=== PATIENT | female | born 1965 ===

== ENCOUNTER 2018-03-13 19:41 | Observation (INO) | payer MEDICAID, OTHER ==
[2018-03-13 19:42] VITALS: BMI 34.8
[2018-03-13] MEDS ORDERED: Sodium Chloride 0.9% 1,000 ML IV STA (20:42)
[2018-03-13 21:43] LABS: BASO % 0.3 % (0.0-2.0); EOS % 0.2 % (0.0-4.0); HEMOGLOBIN 12.9 g/dL (12.0-16.0); LYMPH # 1.3 K/uL (1.0-4.3); LYMPH % 9.7 % (20.0-40.0); MEAN CORPUSCULAR HEMOGLOBIN 29.7 pg (27.0-31.0); MEAN PLATELET VOLUME 9.3 fl (7.2-11.7); MONO % 7.2 % (0.0-10.0); NEUT # 11.1 K/uL (1.8-7.0); NEUT % 82.6 % (50.0-75.0); PLATELET COUNT 216 K/uL (130-400); RBC 4.35 Mil/uL (3.80-5.20); RED CELL DISTRIBUTION WIDTH 13.2 % (11.5-14.5); WHITE BLOOD COUNT 13.4 K/uL (4.8-10.8)
[2018-03-13 21:51] LABS: SQUAMOUS EPITHIAL 4 /hpf (0-5); URINE BACTERIA RARE (<OCC); URINE BILIRUBIN NEGATIVE (NEGATIVE); URINE BLOOD SMALL (NEGATIVE); URINE CLARITY CLOUDY (Clear); URINE COLOR AMBER (YELLOW); URINE GLUCOSE (UA) NEG (Normal); URINE LEUKOCYTE ESTERASE TRACE Leu/uL (Negative); URINE PROTEIN 100 mg/dL (NEGATIVE); URINE UROBILINOGEN 0.2-1.0 mg/dL (0.2-1.0)
[2018-03-13 21:54] LABS: ALB/GLOB RATIO 1.1 (1.0-2.1); ALBUMIN 4.2 g/dL (3.5-5.0); ALT/SGPT 21 U/L (9-52); AST/SGOT 25 U/L (14-36); BLOOD UREA NITROGEN 12 mg/dl (7-17); GFR NON-AFRICAN AMERICAN > 60; LIPASE 61 U/L (23-300)
[2018-03-13 22:57] LABS: ANISOCYTOSIS SLIGHT; BANDS 3 % (0-2); HYPOCHROMIC SLIGHT; LYMPHOCYTE 12 % (20-50); MONOCYTE 10 % (0-10); NEUTROPHIL 75 % (42-75); PLATELET ESTIMATE NORMAL (NORMAL); TOTAL CELLS COUNTED 100
[2018-03-14] MEDS ORDERED: Piperacillin/Tazobact 3.375 GM in Sodium Chloride 0.9% 100 ML IV ONE (04:27)
--- NOTE | 2018-03-14 04:34 | ED PDOC ---
HPI: Abdomen Time Seen by Provider: 03/14/18 00:15 Chief Complaint (Nursing): Abdominal Pain Chief Complaint (Provider): Right sided abdominal pain Past Medical History Reviewed: Historical Data, Nursing Documentation, Vital Signs Vital Signs: Last Vital Signs Temp 98.3 F 03/13/18 20:23 Pulse 80 03/13/18 20:23 Resp 16 03/13/18 20:23 BP 101/68 03/13/18 20:23 Pulse Ox 98 03/13/18 20:23 - Medical History PMH: Migraine, Chronic Kidney Disease - Surgical History Surgical History: (x 1) - Family History Family History: States: Diabetes, Hypertension - Home Medications Home Medications: Ambulatory Orders Medication Instructions Recorded Meclizine [Meclizine*] 25 mg PO Q8H PRN #15 tab 10/28/14 Ibuprofen [Motrin Tab] 600 mg PO Q6 PRN #15 tab 04/05/16 - Allergies Allergies/Adverse Reactions: Allergies Allergy/AdvReac Type Severity Reaction Status Date / Time No Known Allergies Allergy Verified 03/13/18 20:23 - Laboratory Results Result Diagrams: 03/13/18 21:38 03/13/18 21:38 - ECG O2 Sat by Pulse Oximetry: 98 Disposition - Disposition
--- NOTE | 2018-03-14 05:05 | CP.PCM.CON ---
History of Present Illness - History of Present Illness History of Present Illness: General surgery consult note for Dr. Stu Almanza, PGY-2 Pt S & E at bedside at 0430. Latvian interpretors Grace #[id number] and Veto antonio 52F w/PMH sig for nephrolithiasis consulted for R mid abdominal pain x 1 day. Pt reports sudden onset of R mid abdominal pain the AM prior to evaluation, pain is constant, severe, radiates to left side. Admits to diarrhea x 2 (soft unformed). Reports having similarly located pain 1.5 yrs prior with hospitalization and diagnosis of nephrolithiasis. Denies N & V, F & C, constipation, SOB, CP, BAIG, sore throat, dysuria, hematuria, hematochezia, melena, other complaints. Last meal was breakfast on day prior to evaluation, last PO intake was water at 6pm. In ED - CT abdomen positive for acute appendicitis, 1.5 cm, uncomplicated. Afebrile, leukocytosis of 13.4. PMH: Nephrolithiasis, migraines, Benign positional vertigo PSH: x 1 All: NKDA SH: Admits to drinking up to 10 beers weekly, denies tobacco or illicit drug use FH: Mother had cancer in her bowel PMD: Denies Review of Systems - Review of Systems All systems: reviewed and no additional remarkable complaints except - Constitutional Constitutional: Headache (chronic migraines). absent: Chills, Fever - EENT Nose/Mouth/Throat: absent: Sore Throat - Cardiovascular Cardiovascular: absent: Chest Pain - Gastrointestinal Gastrointestinal: Abdominal Pain, Change in Bowel Habits, Diarrhea, Loose Stools. absent: Constipation, Hematemesis, Hematochezia, Melena, Nausea, Vomiting - Genitourinary Genitourinary: absent: Change in Urinary Stream, Dysuria, Flank Pain, Hematuria, Pyuria - Musculoskeletal Musculoskeletal: absent: Back Pain - Integumentary Integumentary: absent: Rash - Neurological Neurological: Dizziness (chronic, hx vertigo) - Psychiatric Psychiatric: Change in Appetite (decreased) - Endocrine Endocrine: absent: Fatigue Past Patient History - Past Social History Smoking Status: Never Smoked - CARDIAC Hx Cardiac Disorders: No - PULMONARY Hx Respiratory Disorders: No - NEUROLOGICAL Hx Migraine: Yes - HEENT Hx HEENT Problems: No - RENAL Hx Chronic Kidney Disease: Yes - ENDOCRINE/METABOLIC Hx Endocrine Disorders: No - HEMATOLOGICAL/ONCOLOGICAL Hx Blood Disorders: No - INTEGUMENTARY Hx Dermatological Problems: No - MUSCULOSKELETAL/RHEUMATOLOGICAL Hx Musculoskeletal Disorders: No - GASTROINTESTINAL Hx Gastrointestinal Disorders: No - GENITOURINARY/GYNECOLOGICAL Hx Genitourinary Disorders: No - PSYCHIATRIC Hx Psychophysiologic Disorder: No Hx Substance Use: No - SURGICAL HISTORY Hx Surgeries: Yes Hx Section: Yes - ANESTHESIA Hx Anesthesia: Yes Hx Anesthesia Reactions: No Meds Allergies/Adverse Reactions: Allergies Allergy/AdvReac Type Severity Reaction Status Date / Time No Known Allergies Allergy Verified 03/13/18 20:23 - Medications Medications: Current Medications Piperacillin Sod/Tazobactam (Sod 3.375 gm/ Sodium Chloride) 100 mls @ 100 mls/hr IV ONCE ONE; Protocol Stop: 03/14/18 05:26 Physical Exam - Constitutional Appears: Non-toxic, No Acute Distress - Head Exam Head Exam: ATRAUMATIC, NORMAL INSPECTION, NORMOCEPHALIC - Eye Exam Eye Exam: EOMI, Normal appearance - ENT Exam ENT Exam: Mucous Membranes Moist, Normal Exam - Neck Exam Neck exam: Positive for: Full Rom, Normal Inspection - Respiratory Exam Respiratory Exam: Clear to Auscultation Bilateral, NORMAL BREATHING PATTERN. absent: Rales, Rhonchi, Wheezes, Respiratory Distress - Cardiovascular Exam Cardiovascular Exam: REGULAR RHYTHM, +S1, +S2 - GI/Abdominal Exam GI & Abdominal Exam: Normal Bowel Sounds, Soft, Tenderness (R mid abdomen). absent: Distended (obese), Firm, Guarding, Hernia, Mass, Rigid - Extremities Exam Extremities exam: Positive for: normal inspection. Negative for: tenderness - Neurological Exam Neurological exam: Alert, CN II-XII Intact, Oriented x3 - Psychiatric Exam Psychiatric exam: Normal Affect, Normal Mood - Skin Skin Exam: Dry, Intact, Normal Color, Warm Results - Vital Signs Recent Vital Signs: Last Vital Signs Temp 98.3 F 03/13/18 20:23 Pulse 80 03/13/18 20:23 Resp 16 03/13/18 20:23 BP 101/68 03/13/18 20:23 Pulse Ox 98 03/14/18 04:54 - Labs Result Diagrams: 03/13/18 21:38 03/13/18 21:38 Labs: Laboratory Results - last 24 hr 03/13/18 03/13/18 03/13/18 21:38 21:38 21:58 WBC 13.4 H D RBC 4.35 Hgb 12.9 Hct 39.2 MCV 90.0 MCH 29.7 MCHC 33.0 RDW 13.2 Plt Count 216 MPV 9.3 Neut % (Auto) 82.6 H Lymph % (Auto) 9.7 L Sullivan % (Auto) 7.2 Eos % (Auto) 0.2 Baso % (Auto) 0.3 Neut # (Auto) 11.1 H Lymph # (Auto) 1.3 Sullivan # (Auto) 1.0 H Eos # (Auto) 0.0 Baso # (Auto) 0.0 Neutrophils % (Manual) 75 Band Neutrophils % 3 H Lymphocytes % (Manual) 12 L Monocytes % (Manual) 10 Platelet Estimate Normal Hypochromasia (manual) Slight Anisocytosis (manual) Slight Sodium 139 Potassium 4.2 Chloride 105 Carbon Dioxide 26 Anion Gap 12 BUN 12 Creatinine 0.5 L Est GFR ( Amer) > 60 Est GFR (Non-Af Amer) > 60 Random Glucose 114 H Calcium 9.0 Total Bilirubin 0.6 AST 25 ALT 21 Alkaline Phosphatase 63 Total Protein 7.9 Albumin 4.2 Globulin 3.7 Albumin/Globulin Ratio 1.1 Lipase 61 Urine Color Torie Urine Clarity Cloudy Urine pH 6.0 Ur Specific [place] 1.025 Urine Protein 100 Urine Glucose (UA) Neg Urine Ketones Trace Urine Blood Small Urine Nitrate Negative Urine Bilirubin Negative Urine Urobilinogen 0.2-1.0 Ur Leukocyte Esterase Trace Urine RBC (Auto) 33 H Urine Microscopic WBC 6 H Ur Squamous Epith Cells 4 Urine Bacteria Rare Hyaline Casts 3-5 H Assessment & Plan - Assessment and Plan (Free Text) Assessment: 52F w/acute appendicitis Plan: NPO IVF Abx Pain control FU coags FU EKG FU CXR Plan for OR today Consent in chart Further mgmt as per primary team DW Dr. Chris Almanza, PGY-2 - Date & Time Date: 03/14/18 Time: 05:08
[2018-03-14] MEDS ORDERED: Lactated Ringer's 1,000 ML IV SCH ×2 (05:15→11:30)
[2018-03-14] MEDS ORDERED: Piperacillin/Tazobact 3.375 gm Inj IVPB ONE (05:20)
--- NOTE | 2018-03-14 05:31 | CP.PCM.HP ---
Addendum entered and electronically signed by Leigh Ann Davey MD 03/14/18 18:02: S: Patient seen and examined s/p Appendectomy, POD#0. Patient is stable, urinated, pain is well controlled, tolerating PO intake. O: VS reviewed A/P: 52 y/o F, POD#0 s/p Appendectomy - C/w current management --- Leigh Ann Davey, PGY-II Original Note: History of Present Illness - History of Present Illness History of Present Illness: PMD: None Chief Complaint: Abdominal pain The patient was seen and examined in the ED with no family present HPI: The hx was obtained from the patient and after review of the medical records. This is a 52 years old female with hx of Vertigo and Nephrolithiasis who comes with 3 hours of sharp, continuous right lower quadrant abdominal pain, radiating laterally to the right and increases with movement. No fever, vomits, diarrhea nor urinary symptoms. She referred having this type of pain one year ago. PMH: Vertigo; Nephrolithiasis PSH: Cesarian section x1 SH: No illegal drug use; never smoked cigarettes; Occasional alcohol FH: Significant for DM and HTN Mother with cancer Allergies: NKDA Medication: Reviewed Present on Admission - Present on Admission Any Indicators Present on Admission: No History of DVT/PE: No History of Uncontrolled Diabetes: No Urinary Catheter: No Decubitus Ulcer Present: No Review of Systems - Constitutional Constitutional: absent: Anorexia, Chills, Fatigue, Fever, Headache, Weakness - EENT Eyes: Requires Corrective Lenses. absent: Blurred Vision, Diplopia, Floaters Ears: absent: Decreased Hearing, Ear Discharge, Tinnitus Nose/Mouth/Throat: absent: Epistaxis, Nasal Congestion, Nasal Discharge, Sinus Pain, Sinus Pressure - Cardiovascular Cardiovascular: absent: Chest Pain, Dyspnea, Edema, Lightheadedness, Palpitations - Respiratory Respiratory: absent: Cough, Dyspnea, Wheezing - Gastrointestinal Gastrointestinal: Abdominal Pain. absent: Constipation, Diarrhea, Nausea, Vomiting - Genitourinary Genitourinary: absent: Dysuria, Flank Pain, Urinary Frequency - Musculoskeletal Musculoskeletal: absent: Arthralgias, Back Pain, Muscle Cramps, Myalgias - Integumentary Integumentary: absent: Pruritus, Rash, Skin Ulcer, Sores, Striae, Swelling - Neurological Neurological: Dizziness. absent: Confusion, Focal Weakness, Headaches, Weakness - Psychiatric Psychiatric: absent: Anxiety, Depression, Panic Attacks - Endocrine Endocrine: absent: Palpitations, Polydipsia, Polyphagia, Polyuria - Hematologic/Lymphatic Hematologic: absent: Easy Bleeding, Easy Bruising Past Patient History - Past Medical History & Family History Past Medical History?: Yes - Past Social History Smoking Status: Never Smoked Chewing Tobacco Use: No Cigar Use: No Alcohol: Occasional - CARDIAC Hx Cardiac Disorders: No - PULMONARY Hx Respiratory Disorders: No - NEUROLOGICAL Hx Migraine: Yes - HEENT Hx HEENT Problems: No - RENAL Hx Kidney Stones: Yes Hx Pyelonephritis: Yes - ENDOCRINE/METABOLIC Hx Endocrine Disorders: No - HEMATOLOGICAL/ONCOLOGICAL Hx Blood Disorders: No - INTEGUMENTARY Hx Dermatological Problems: No - MUSCULOSKELETAL/RHEUMATOLOGICAL Hx Musculoskeletal Disorders: No - GASTROINTESTINAL Hx Gastrointestinal Disorders: No - GENITOURINARY/GYNECOLOGICAL Hx Genitourinary Disorders: No - PSYCHIATRIC Hx Psychophysiologic Disorder: No Hx Substance Use: No - SURGICAL HISTORY Hx Surgeries: Yes Hx Section: Yes - ANESTHESIA Hx Anesthesia: Yes Hx Anesthesia Reactions: No Meds Allergies/Adverse Reactions: Allergies Allergy/AdvReac Type Severity Reaction Status Date / Time No Known Allergies Allergy Verified 03/13/18 20:23 Physical Exam - Constitutional Appears: No Acute Distress - Head Exam Head Exam: ATRAUMATIC, NORMAL INSPECTION, NORMOCEPHALIC - Eye Exam Eye Exam: EOMI, Normal appearance Pupil Exam: NORMAL ACCOMODATION, PERRL - ENT Exam ENT Exam: Mucous Membranes Moist, Normal Exam, Normal External Ear Exam - Neck Exam Neck exam: Positive for: Full Rom, Normal Inspection. Negative for: Lymphadenopathy, Tenderness - Respiratory Exam Respiratory Exam: Clear to Auscultation Bilateral. absent: Rales, Rhonchi, Wheezes - Cardiovascular Exam Cardiovascular Exam: REGULAR RHYTHM, RRR, +S1, +S2. absent: Gallop, JVD - GI/Abdominal Exam Additional comments: Flat, soft, decreased bowel sounds, no guarding, pain on palpation at the Right lower quadrant, Localized rebound tenderness at the RLQ. - Rectal Exam Rectal Exam: Deferred - Extremities Exam Extremities exam: Positive for: full ROM, normal inspection. Negative for: calf tenderness, joint swelling, pedal edema - Back Exam Back exam: NORMAL INSPECTION. absent: CVA tenderness (L) - Neurological Exam Neurological exam: Alert, CN II-XII Intact, Oriented x3, Reflexes Normal - Psychiatric Exam Psychiatric exam: Normal Affect, Normal Mood - Skin Skin Exam: Dry, Intact, Normal Color, Warm Results - Vital Signs Recent Vital Signs: Last Vital Signs Temp 98.3 F 03/13/18 20:23 Pulse 80 03/13/18 20:23 Resp 16 03/13/18 20:23 BP 101/68 03/13/18 20:23 Pulse Ox 98 03/14/18 05:21 - Labs Result Diagrams: 03/13/18 21:38 03/13/18 21:38 Labs: Laboratory Results - last 24 hr 03/13/18 03/13/18 03/13/18 21:38 21:38 21:58 WBC 13.4 H D RBC 4.35 Hgb 12.9 Hct 39.2 MCV 90.0 MCH 29.7 MCHC 33.0 RDW 13.2 Plt Count 216 MPV 9.3 Neut % (Auto) 82.6 H Lymph % (Auto) 9.7 L Ashley % (Auto) 7.2 Eos % (Auto) 0.2 Baso % (Auto) 0.3 Neut # (Auto) 11.1 H Lymph # (Auto) 1.3 Ashley # (Auto) 1.0 H Eos # (Auto) 0.0 Baso # (Auto) 0.0 Neutrophils % (Manual) 75 Band Neutrophils % 3 H Lymphocytes % (Manual) 12 L Monocytes % (Manual) 10 Platelet Estimate Normal Hypochromasia (manual) Slight Anisocytosis (manual) Slight Sodium 139 Potassium 4.2 Chloride 105 Carbon Dioxide 26 Anion Gap 12 BUN 12 Creatinine 0.5 L Est GFR ( Amer) > 60 Est GFR (Non-Af Amer) > 60 Random Glucose 114 H Calcium 9.0 Total Bilirubin 0.6 AST 25 ALT 21 Alkaline Phosphatase 63 Total Protein 7.9 Albumin 4.2 Globulin 3.7 Albumin/Globulin Ratio 1.1 Lipase 61 Urine Color Torie Urine Clarity Cloudy Urine pH 6.0 Ur Specific [place] 1.025 Urine Protein 100 Urine Glucose (UA) Neg Urine Ketones Trace Urine Blood Small Urine Nitrate Negative Urine Bilirubin Negative Urine Urobilinogen 0.2-1.0 Ur Leukocyte Esterase Trace Urine RBC (Auto) 33 H Urine Microscopic WBC 6 H Ur Squamous Epith Cells 4 Urine Bacteria Rare Hyaline Casts 3-5 H - EKG Data EKG comments: NSR 73/min No sign of ischemia - Imaging and Cardiology CT scan - abdomen Status: Report reviewed by me Additional comment: Acute Appendicitis Chest x-ray Status: Image reviewed by me Additional comment: No infiltrate Assessment & Plan - Assessment and Plan (Free Text) Assessment: #. Acute Appendicitis Plan: 52 years old female with hx of Vertigo and Nephrolithiasis who comes with 3 hours of sharp, continuous right lower quadrant abdominal pain, radiating laterally to the right and increases with movement. No fever, vomits, diarrhea nor urinary symptoms. She referred having this type of pain one year ago. #. Acute Appendicitis - Consult Dr Perez Surgery - blood culture ordered - IV Fluids - Antibiotics by surgery, Cipro & Flagyl - NPO -Pain management #. DVT prophylaxis with SCD Lovenox start on 03/15/18 #. Code Status: Full This patient with no cardiac nor pulmonary history, normal chest X Ray, urinalysis and Hemoglobin, has low cardiac risk for surgery. Coagulopathy history. The patient is cleared for Surgery under general anesthesia - Date & Time Date: 03/14/18 Time: 05:31
--- NOTE | 2018-03-14 08:23 | US ---
Date of service: 03/13/2018 HISTORY: ruq pain COMPARISON: None. TECHNIQUE: Sonographic evaluation of the right upper quadrant of the abdomen. FINDINGS: LIVER: Measures 14.8 cm in length. Normal echogenicity of the liver parenchyma. No mass. No intrahepatic bile duct dilatation. GALLBLADDER: Unremarkable. No gallstones. No gallbladder wall thickening. COMMON BILE DUCT: Measures 2 mm. No stones. No dilatation. PANCREAS: Unremarkable as visualized. No mass. No ductal dilatation. RIGHT KIDNEY: Measures 10.1 cm in length. Normal echogenicity. No calculus, mass, or hydronephrosis. AORTA: No aneurysmal dilatation. IVC: Unremarkable. OTHER FINDINGS: None . IMPRESSION: Unremarkable right upper quadrant ultrasound.
[2018-03-14 08:32] LABS: INR 1.1; PROTHROMBIN TIME 12.6 Seconds (9.8-13.1)
[2018-03-14 08:34] LABS: PARTIAL THROMBOPLASTIN TIME 33.1 Seconds (25.6-37.1)
--- NOTE | 2018-03-14 09:10 | CARD ---
APPROVED REPORT Date of service: 03/14/2018 EKG Measurement Heart [id number] <Conclusion> Normal sinus rhythm Normal ECG
[2018-03-14] MEDS ORDERED: metroNIDAZOLE 500mg/100ml NS 0 ML IVPB ONE (10:00)
[2018-03-14] MEDS ORDERED: Ciprofloxacin 400mg/200ml D5W 0 MG/0 ML BAG IVPB ONE (10:00)
[2018-03-14] MEDS ORDERED: Bupivacaine HCl 0.25% PF (30 ml) Inj ONE (10:00)
[2018-03-14] MEDS ORDERED: Propofol 10 mg/ml Inj (20 ML) ONE (10:08)
[2018-03-14] MEDS ORDERED: Lidocaine 4% (Laryng-O-Jet) Kit MM ONE (10:08)
[2018-03-14] MEDS ORDERED: Midazolam 2 MG/2 ML VIAL ONE (10:08)
[2018-03-14] MEDS ORDERED: Rocuronium 10 mg/ml (5 ml) ONE (10:08)
[2018-03-14] MEDS ORDERED: Neostigmine 1:1000 (1 mg/ml) Inj ONE (10:08)
[2018-03-14] MEDS ORDERED: Lidocaine 1% 5ml Abboject ONE (10:08)
[2018-03-14] MEDS ORDERED: Succinylcholine 200 mg/10 ml Inj IV ONE (10:08)
[2018-03-14] MEDS ORDERED: Ciprofloxacin 400mg/200ml D5W IVPB ONE (10:20)
[2018-03-14] MEDS ORDERED: metroNIDAZOLE 500mg/100ml NS IVPB ONE (10:25)
--- NOTE | 2018-03-14 10:31 | CP.PCM.PN ---
Subjective - Date & Time of Evaluation Date of Evaluation: 03/14/18 Time of Evaluation: 08:30 - Subjective Subjective: Patient seen and examined this morning at bedside. Objective - Vital Signs/Intake and Output Vital Signs (last 24 hours): Temp Pulse Resp BP Pulse Ox 99.5 F 78 20 92/57 L 98 03/14/18 08:20 03/14/18 09:31 03/14/18 09:31 03/14/18 08:20 03/14/18 08:20 - Medications Medications: Current Medications Ciprofloxacin (Cipro 400mg/200ml Dsw) 400 mg in 200 mls @ 200 mls/hr IVPB Q12 MERE; Protocol Metronidazole (Flagyl 500mg/100ml Ns) 100 mls @ 100 mls/hr IVPB Q8 MERE; Protocol Lactated Ringer's (Lactated Ringer's) 1,000 mls @ 125 mls/hr IV .Q8H MERE Last Admin: 03/14/18 08:35 Dose: 125 mls/hr Morphine Sulfate (Morphine) 2 mg IVP Q4 PRN PRN Reason: Pain, moderate (4-7) Morphine Sulfate (Morphine) 4 mg IVP Q4 PRN PRN Reason: Pain, severe (8-10) - Labs Labs: 03/13/18 21:38 03/13/18 21:38 PT 12.6 Seconds (9.8-13.1) 03/14/18 08:14 INR 1.1 03/14/18 08:14 APTT 33.1 Seconds (25.6-37.1) 03/14/18 08:14
--- NOTE | 2018-03-14 10:31 | RAD ---
Date of service: 03/14/2018 PROCEDURE: CHEST RADIOGRAPH, 1 VIEW HISTORY: pre op COMPARISON: 10/28/2014 FINDINGS: LUNGS: Mild interstitial changes and/or bibasilar volume loss is noted. PLEURA: No pneumothorax or pleural fluid seen. CARDIOVASCULAR: Normal. OSSEOUS STRUCTURES: No significant abnormalities. VISUALIZED UPPER ABDOMEN: Normal. OTHER FINDINGS: None. IMPRESSION: No evidence of focal infiltrate. Mild interstitial change and/or bibasilar volume loss.
[2018-03-14] MEDS ORDERED: Oxycodone/Acetaminophen 5/325 mg Tab PO PRN ×2 (11:14)
--- NOTE | 2018-03-14 11:19 | PCM.SURG1 ---
Surgeon's Initial Post Op Note - Surgeon's Notes Surgeon: Dr. Perez Body Bumper: Dr. Huitron PGY1 Type of Anesthesia: General Endo Pre-Operative Diagnosis: acute appendicitis Operative Findings: retroceccal appendix Post-Operative Diagnosis: acute appendicitis Operation Performed: laparascopic appendectomy Specimen/Specimens Removed: appendix Estimated Blood Loss: EBL {In ML}: 5 Blood Products Given: N/A Drains Used: No Drains Post-Op Condition: Good Date of Surgery/Procedure: 03/14/18 Time of Surgery/Procedure: 11:18
[2018-03-14] MEDS ORDERED: HYDROmorphone 0.5 mg/0.5 ml ISec IVP PRN (11:22)
[2018-03-14] MEDS ORDERED: Lactated Ringer's 1,000 ML IV ONE (11:23)
--- NOTE | 2018-03-14 11:48 | OP ---
PROCEDURE DATE: 03/14/2018 PREOPERATIVE DIAGNOSIS: Acute appendicitis. POSTOPERATIVE DIAGNOSIS: Acute appendicitis. OPERATION PERFORMED: Laparoscopic appendectomy. SURGEON: Omar Perez MD BLANKBOOK FORWARDER: . TYPE OF ANESTHESIA: General anesthesia by Dr. Dixon. ANESTHESIA ADMINISTERED BY: Fito Dixon MD OPERATIVE FINDINGS: Acute appendicitis. ESTIMATED BLOOD LOSS: Minimal. DESCRIPTION OF PROCEDURE: The operative procedure is as follows: The patient was taken to the operating room and placed supine on the operating room table. After induction of general anesthesia, a Quick catheter was placed to decompress the bladder and the abdomen was prepped and draped in the standard surgical fashion. A Veress needle was inserted into the abdomen and the abdomen was insufflated. Once the abdomen was insufflated, a 5-mm trocar was placed through the umbilicus and a diagnostic laparoscopy was performed. The diagnostic laparoscopy revealed inflammation in the right lower quadrant. The patient was then placed into the Trendelenburg and left side down position, and a 5 mm suprapubic trocar as well as a 12-mm left-sided trocar were placed under direct vision. The appendix was then found at the base of the cecum, grasped, and pulled upwards. A window was made in the mesoappendix using the [place] dissector. Once the window was made in the mesoappendix, the Endo-GONZALEZ was fired across the appendix and the base of the appendix and cecum were severed. A second firing of the Endo-GONZALEZ using a vascular load was used to fire across the mesoappendix. Once the mesoappendix was severed, the appendix was placed into an EndoCatch bag. The patient then returned to the flat position. The area was inspected for hemostasis and there was no evidence of bleeding. The right lower quadrant was copiously irrigated and the irrigant was removed. The appendix was then removed via the 12 mm trocar site and the 12 mm trocar and the 5-mm trocars were removed under direct vision. The fascia of the 12 mm trocar site was reapproximated using #0 Vicryl and the skin incisions were closed using #4-0 Monocryl. The patient was then awakened from general anesthesia. The Quick catheter was removed. Sponges, instruments, and needle counts were all correct at the end of the case. Omar Perez MD [facility] # [id number]
[2018-03-14] MEDS: metroNIDAZOLE 500mg/100ml NS 100 ML IVPB SCH ×2 (12:14→16:21)
[2018-03-14] MEDS: Ciprofloxacin 400mg/200ml D5W 400 MG/200 ML BAG IVPB SCH ×2 (12:14→20:27)
--- NOTE | 2018-03-14 12:32 | CT ---
Date of service: 03/14/2018 PROCEDURE: CT Abdomen and Pelvis without intravenous contrast HISTORY: right sided pain, blood in urine COMPARISON: 04/05/2016 TECHNIQUE: CT scan of the abdomen and pelvis was performed without the use of intravenous contrast.. Contrast dose: No contrast Radiation dose: Total exam DLP = 799 mGy-cm. This CT exam was performed using one or more of the following dose reduction techniques: Automated exposure control, adjustment of the mA and/or kV according to patient size, and/or use of iterative reconstruction technique. FINDINGS: LOWER THORAX: Unremarkable. LIVER: Noncontrast imaging of the liver shows no evidence of focal mass or intrahepatic ductal dilatation. GALLBLADDER AND BILE DUCTS: Unremarkable. PANCREAS: Unremarkable. No gross lesion or ductal dilatation. SPLEEN: Unremarkable. ADRENALS: Unremarkable. No mass. KIDNEYS AND URETERS: There is some mild inflammatory changes adjacent to the anterior aspect of the lower pole of the right kidney related to the patient's appendicitis. Please see below. No hydronephrosis or ureteral dilatation is seen. No renal calculus is noted. VASCULATURE: Unremarkable. No aortic aneurysm. BOWEL: There is some mild inflammatory changes seen adjacent to the bowel related to the patient's appendicitis. Please see below . No small bowel dilatation or small bowel obstruction is noted. No colonic wall thickening is noted elsewhere. APPENDIX: There is evidence of appendicitis with thickened and enlarged appendix and mild periappendiceal inflammatory changes. There is mild fluid or periappendiceal inflammatory changes in the right pericolic gutter. No appreciable free intraperitoneal air or focal fluid collection to suggest abscess is noted. PERITONEUM: See above. LYMPH NODES: A few small right lower quadrant lymph nodes are seen. No retroperitoneal adenopathy is seen. BLADDER: Unremarkable. REPRODUCTIVE: Unremarkable. BONES: No acute fracture. OTHER FINDINGS: IMPRESSION: Appendicitis. Mild Periappendiceal inflammatory changes including some mild nonspecific fluid in the pericolic gutter on the right. Mild adjacent pericolonic changes involving the cecum and right colon related to the appendicitis. No appreciable CT scan evidence of appendiceal perforation. This agrees with preliminary report provided by the on-call radiologist.
[2018-03-14] MEDS ORDERED: Influenza Vaccine (5 YR UP)/PF 60 MCG/0.5 ML SYR IM ONE (17:00)
[2018-03-15] MEDS: metroNIDAZOLE 500mg/100ml NS 100 ML IVPB SCH ×2 (01:54→08:14)
[2018-03-15 07:24] LABS: BASO % 0.4 % (0.0-2.0); EOS % 0.4 % (0.0-4.0); HEMOGLOBIN 10.9 g/dL (12.0-16.0); LYMPH # 1.9 K/uL (1.0-4.3); LYMPH % 23.2 % (20.0-40.0); MEAN CELL VOLUME 90.5 fl (81.0-99.0); MEAN CORPUSCULAR HEMOGLOBIN 30.2 pg (27.0-31.0); MEAN CORPUSCULAR HGB CONC 33.4 g/dL (33.0-37.0); MEAN PLATELET VOLUME 9.8 fl (7.2-11.7); MONO # 0.6 K/uL (0.0-0.8); MONO % 7.5 % (0.0-10.0); NEUT # 5.7 K/uL (1.8-7.0); NEUT % 68.5 % (50.0-75.0); RBC 3.62 Mil/uL (3.80-5.20); RED CELL DISTRIBUTION WIDTH 13.3 % (11.5-14.5); WHITE BLOOD COUNT 8.4 K/uL (4.8-10.8)
--- NOTE | 2018-03-15 07:38 | CP.PCM.PN ---
Subjective - Date & Time of Evaluation Date of Evaluation: 03/15/18 Time of Evaluation: 07:35 - Subjective Subjective: General Surgery Consult Note for Dr. Perez 52F seen and evaluated at bedside this morning. No acute events overnight. Patient is tolerating diet, ambulating without difficulty, passing flatus. Denies f/c/n/v/d. Minimal abdominal pain with palpation. Objective - Vital Signs/Intake and Output Vital Signs (last 24 hours): Temp Pulse Resp BP Pulse Ox 98.7 F 84 19 106/64 96 03/15/18 05:00 03/15/18 05:00 03/15/18 05:00 03/15/18 05:00 03/15/18 05:00 - Medications Medications: Current Medications Enoxaparin Sodium (Lovenox) 40 mg SC HS MERE; Protocol Ciprofloxacin (Cipro 400mg/200ml Dsw) 400 mg in 200 mls @ 200 mls/hr IVPB Q12 MERE; Protocol Last Admin: 03/14/18 20:27 Dose: 200 mls/hr Metronidazole (Flagyl 500mg/100ml Ns) 100 mls @ 100 mls/hr IVPB Q8 MERE; Protocol Last Admin: 03/15/18 01:54 Dose: 100 mls/hr Morphine Sulfate (Morphine) 2 mg IVP Q4 PRN PRN Reason: Pain, moderate (4-7) Morphine Sulfate (Morphine) 4 mg IVP Q4 PRN PRN Reason: Pain, severe (8-10) Ondansetron HCl (Zofran Inj) 4 mg IVP Q6 PRN PRN Reason: Nausea/Vomiting Oxycodone/Acetaminophen (Percocet 5/325 Mg Tab) 1 tab PO Q6 PRN PRN Reason: Pain, moderate (4-7) Stop: 03/17/18 11:15 Oxycodone/Acetaminophen (Percocet 5/325 Mg Tab) 2 tab PO Q6 PRN PRN Reason: Pain, severe (8-10) Stop: 03/17/18 11:15 - Labs Labs: 03/15/18 05:20 03/13/18 21:38 PT 12.6 Seconds (9.8-13.1) 03/14/18 08:14 INR 1.1 03/14/18 08:14 APTT 33.1 Seconds (25.6-37.1) 03/14/18 08:14 - Constitutional Appears: Well, Non-toxic, No Acute Distress - Head Exam Head Exam: ATRAUMATIC, NORMAL INSPECTION, NORMOCEPHALIC - Eye Exam Eye Exam: EOMI Pupil Exam: PERRL - ENT Exam ENT Exam: Mucous Membranes Moist - Respiratory Exam Respiratory Exam: Clear to Ausculation Bilateral, NORMAL BREATHING PATTERN - Cardiovascular Exam Cardiovascular Exam: REGULAR RHYTHM, +S1, +S2. absent: Murmur - GI/Abdominal Exam GI & Abdominal Exam: Soft, Tenderness, Normal Bowel Sounds Additional comments: Incision sites clean, dry, intact - Neurological Exam Neurological Exam: Alert, Awake, Oriented x3 - Psychiatric Exam Psychiatric exam: Normal Affect, Normal Mood - Skin Skin Exam: Dry, Intact, Normal Color, Warm Assessment and Plan - Assessment and Plan (Free Text) Assessment: 52F w/ acute appendicitis s/p laparoscopic appendectomy POD#1 Plan: -Continue pain control -Continue IV Abx -Encourage ambulation and IS use -Will discharge with Augmentin -Patient is cleared for discharge from a surgical standpoint -D/w attending Dr. Chris Huitron PGY1
[2018-03-15 07:44] LABS: ALBUMIN 3.2 g/dL (3.5-5.0); ALT/SGPT 19 U/L (9-52); AST/SGOT 19 U/L (14-36); BLOOD UREA NITROGEN 8 mg/dl (7-17); CALCIUM 8.3 mg/dL (8.4-10.2); GFR NON-AFRICAN AMERICAN > 60
[2018-03-15] MEDS ORDERED: Potassium Chloride 20 mEq ER Tab PO ONE (07:56)
[2018-03-15 08:01] VITALS: BP 113/71; PULSE 82; RESP 20; TEMP 98.5; O2SAT 93
[2018-03-15] MEDS: Ciprofloxacin 400mg/200ml D5W 400 MG/200 ML BAG IVPB SCH (08:15)
--- NOTE | 2018-03-15 16:06 | CP.PCM.DIS ---
<Andrea Tenorio - Last Filed: 03/15/18 16:08> Provider - Provider Date of Admission: 03/14/18 05:25 Attending physician: Temo Vincent Time Spent in preparation of Discharge (in minutes): 30 Diagnosis - Discharge Diagnosis (1) S/P appendectomy Status: Acute Hospital Course - Lab Results Lab Results: Micro Results 03/14/18 04:45 Blood Blood Culture - Preliminary NO GROWTH AFTER 24 HOURS 03/14/18 04:15 Blood Blood Culture - Preliminary NO GROWTH AFTER 24 HOURS Most Recent Lab Values WBC 8.4 K/uL (4.8-10.8) 03/15/18 05:20 RBC 3.62 Mil/uL (3.80-5.20) L 03/15/18 05:20 Hgb 10.9 g/dL (12.0-16.0) L D 03/15/18 05:20 Hct 32.8 % (34.0-47.0) L 03/15/18 05:20 MCV 90.5 fl (81.0-99.0) 03/15/18 05:20 MCH 30.2 pg (27.0-31.0) 03/15/18 05:20 MCHC 33.4 g/dL (33.0-37.0) 03/15/18 05:20 RDW 13.3 % (11.5-14.5) 03/15/18 05:20 Plt Count 196 K/uL (130-400) 03/15/18 05:20 MPV 9.8 fl (7.2-11.7) 03/15/18 05:20 Neut % (Auto) 68.5 % (50.0-75.0) 03/15/18 05:20 Lymph % (Auto) 23.2 % (20.0-40.0) 03/15/18 05:20 [place] % (Auto) 7.5 % (0.0-10.0) 03/15/18 05:20 Eos % (Auto) 0.4 % (0.0-4.0) 03/15/18 05:20 Baso % (Auto) 0.4 % (0.0-2.0) 03/15/18 05:20 Neut # (Auto) 5.7 K/uL (1.8-7.0) 03/15/18 05:20 Lymph # (Auto) 1.9 K/uL (1.0-4.3) 03/15/18 05:20 [place] # (Auto) 0.6 K/uL (0.0-0.8) 03/15/18 05:20 Eos # (Auto) 0.0 K/uL (0.0-0.7) 03/15/18 05:20 Baso # (Auto) 0.0 K/uL (0.0-0.2) 03/15/18 05:20 Neutrophils % (Manual) 75 % (42-75) 03/13/18 21:38 Band Neutrophils % 3 % (0-2) H 03/13/18 21:38 Lymphocytes % (Manual) 12 % (20-50) L 03/13/18 21:38 Monocytes % (Manual) 10 % (0-10) 03/13/18 21:38 Platelet Estimate Normal (NORMAL) 03/13/18 21:38 Hypochromasia (manual) Slight 03/13/18 21:38 Anisocytosis (manual) Slight 03/13/18 21:38 PT 12.6 Seconds (9.8-13.1) 03/14/18 08:14 INR 1.1 03/14/18 08:14 APTT 33.1 Seconds (25.6-37.1) 03/14/18 08:14 Sodium 140 mmol/l (132-148) 03/15/18 05:20 Potassium 3.5 MMOL/L (3.6-5.0) L 03/15/18 05:20 Chloride 108 mmol/L (98-107) H 03/15/18 05:20 Carbon Dioxide 26 mmol/L (22-30) 03/15/18 05:20 Anion Gap 10 (10-20) 03/15/18 05:20 BUN 8 mg/dl (7-17) 03/15/18 05:20 Creatinine 0.6 mg/dl (0.7-1.2) L 03/15/18 05:20 Est GFR ( Amer) > 60 03/15/18 05:20 Est GFR (Non-Af Amer) > 60 03/15/18 05:20 Random Glucose 85 mg/dL (65-105) 03/15/18 05:20 Calcium 8.3 mg/dL (8.4-10.2) L 03/15/18 05:20 Total Bilirubin 0.7 mg/dl (0.2-1.3) 03/15/18 05:20 AST 19 U/L (14-36) 03/15/18 05:20 ALT 19 U/L (9-52) 03/15/18 05:20 Alkaline Phosphatase 52 U/L (38-126) 03/15/18 05:20 Total Protein 6.3 G/DL (6.3-8.2) 03/15/18 05:20 Albumin 3.2 g/dL (3.5-5.0) L D 03/15/18 05:20 Globulin 3.1 gm/dL (2.2-3.9) 03/15/18 05:20 Albumin/Globulin Ratio 1.0 (1.0-2.1) 03/15/18 05:20 Lipase 61 U/L (23-300) 03/13/18 21:38 Urine Color Torie (YELLOW) 03/13/18 21:58 Urine Clarity Cloudy (Clear) 03/13/18 21:58 Urine pH 6.0 (5.0-8.0) 03/13/18 21:58 Ur Specific [place] 1.025 (1.003-1.030) 03/13/18 21:58 Urine Protein 100 mg/dL (NEGATIVE) 03/13/18 21:58 Urine Glucose (UA) Neg mg/dL (Normal) 03/13/18 21:58 Urine Ketones Trace mg/dL (NEGATIVE) 03/13/18 21:58 Urine Blood Small (NEGATIVE) 03/13/18 21:58 Urine Nitrate Negative (NEGATIVE) 03/13/18 21:58 Urine Bilirubin Negative (NEGATIVE) 03/13/18 21:58 Urine Urobilinogen 0.2-1.0 mg/dL (0.2-1.0) 03/13/18 21:58 Ur Leukocyte Esterase Trace Stephan/uL (Negative) 03/13/18 21:58 Urine RBC (Auto) 33 /hpf (0-3) H 03/13/18 21:58 Urine Microscopic WBC 6 /hpf (0-5) H 03/13/18 21:58 Ur Squamous Epith Cells 4 /hpf (0-5) 03/13/18 21:58 Urine Bacteria Rare (<OCC) 03/13/18 21:58 Hyaline Casts 3-5 /hpf (0-2) H 03/13/18 21:58 - Hospital Course Hospital Course: 52 years old female with hx of Vertigo and Nephrolithiasis was admitted for right lower quadrant abdominal pain, radiating laterally to the right and increases with movement. No fever, vomits, diarrhea nor urinary symptoms. She was found to have appendicitis. Was put on IV antibiotics and had Appendectomy. Tolerated procedure well. Seen on POD 1 doing well. Tolerated regular diet without any difficulties. Had normal bowl movement without difficulties. PAin is controlled with medication. Discharge Exam - Head Exam Head Exam: NORMAL INSPECTION, NORMOCEPHALIC - Eye Exam Eye Exam: Normal appearance - ENT Exam ENT Exam: Mucous Membranes Moist - Respiratory Exam Respiratory Exam: Clear to PA & Lateral. absent: Wheezes, Respiratory Distress - Cardiovascular Exam Cardiovascular Exam: REGULAR RHYTHM, +S1, +S2 - GI/Abdominal Exam GI & Abdominal Exam: Normal Bowel Sounds, Soft Additional comments: Surgical sites appear C/D/I no discharge noted on dressing - Neurological Exam Neurological exam: Alert, CN II-XII Intact, Oriented x3 - Psychiatric Exam Psychiatric exam: Normal Affect - Skin Skin Exam: Warm Discharge Plan - Discharge Medications Prescriptions: Amoxicillin/Clavulanate [Augmentin 500 MG-125 MG] 1 tab PO BID 7 Days #14 tab - Follow Up Plan Condition: GOOD Disposition: HOME/ ROUTINE Instructions: Appendicitis, Adult (DC), Appendectomy, Laparoscopic Surgery (DC) Additional Instructions: Please follow up in Dr. Perez's office in 2 weeks. Please take antibiotic medication as prescribed and complete the full course. For pain, over the counter Tylenol and Ibuprofen. Please do not take baths or go in pools for the next 2 weeks. Okay to shower. You can remove the band-aids tomorrow (03/16/18), and you will notice glue over the incision sites. Do not scratch off the glue as it will slowly flake off on its own over the next 1-2 weeks. No heavy lifting for the next 4-6 weeks greater than 15-20 pounds. Referrals: Omar Perez MD [Staff Provider] - <Jackelyn Bush - Last Filed: 03/15/18 17:49> Provider - Provider Date of Admission: 03/14/18 05:25 Attending physician: Temo Vincent [facility] Course - Lab Results Lab Results: Micro Results 03/13/18 21:38 Urine Urine Culture - Final Gram Negative Suresh 03/14/18 04:45 Blood Blood Culture - Preliminary NO GROWTH AFTER 24 HOURS 03/14/18 04:15 Blood Blood Culture - Preliminary NO GROWTH AFTER 24 HOURS Most Recent Lab Values WBC 8.4 K/uL (4.8-10.8) 03/15/18 05:20 RBC 3.62 Mil/uL (3.80-5.20) L 03/15/18 05:20 Hgb 10.9 g/dL (12.0-16.0) L D 03/15/18 05:20 Hct 32.8 % (34.0-47.0) L 03/15/18 05:20 MCV 90.5 fl (81.0-99.0) 03/15/18 05:20 MCH 30.2 pg (27.0-31.0) 03/15/18 05:20 MCHC 33.4 g/dL (33.0-37.0) 03/15/18 05:20 RDW 13.3 % (11.5-14.5) 03/15/18 05:20 Plt Count 196 K/uL (130-400) 03/15/18 05:20 MPV 9.8 fl (7.2-11.7) 03/15/18 05:20 Neut % (Auto) 68.5 % (50.0-75.0) 03/15/18 05:20 Lymph % (Auto) 23.2 % (20.0-40.0) 03/15/18 05:20 [place] % (Auto) 7.5 % (0.0-10.0) 03/15/18 05:20 Eos % (Auto) 0.4 % (0.0-4.0) 03/15/18 05:20 Baso % (Auto) 0.4 % (0.0-2.0) 03/15/18 05:20 Neut # (Auto) 5.7 K/uL (1.8-7.0) 03/15/18 05:20 Lymph # (Auto) 1.9 K/uL (1.0-4.3) 03/15/18 05:20 [place] # (Auto) 0.6 K/uL (0.0-0.8) 03/15/18 05:20 Eos # (Auto) 0.0 K/uL (0.0-0.7) 03/15/18 05:20 Baso # (Auto) 0.0 K/uL (0.0-0.2) 03/15/18 05:20 Neutrophils % (Manual) 75 % (42-75) 03/13/18 21:38 Band Neutrophils % 3 % (0-2) H 03/13/18 21:38 Lymphocytes % (Manual) 12 % (20-50) L 03/13/18 21:38 Monocytes % (Manual) 10 % (0-10) 03/13/18 21:38 Platelet Estimate Normal (NORMAL) 03/13/18 21:38 Hypochromasia (manual) Slight 03/13/18 21:38 Anisocytosis (manual) Slight 03/13/18 21:38 PT 12.6 Seconds (9.8-13.1) 03/14/18 08:14 INR 1.1 03/14/18 08:14 APTT 33.1 Seconds (25.6-37.1) 03/14/18 08:14 Sodium 140 mmol/l (132-148) 03/15/18 05:20 Potassium 3.5 MMOL/L (3.6-5.0) L 03/15/18 05:20 Chloride 108 mmol/L (98-107) H 03/15/18 05:20 Carbon Dioxide 26 mmol/L (22-30) 03/15/18 05:20 Anion Gap 10 (10-20) 03/15/18 05:20 BUN 8 mg/dl (7-17) 03/15/18 05:20 Creatinine 0.6 mg/dl (0.7-1.2) L 03/15/18 05:20 Est GFR ( Amer) > 60 03/15/18 05:20 Est GFR (Non-Af Amer) > 60 03/15/18 05:20 Random Glucose 85 mg/dL (65-105) 03/15/18 05:20 Calcium 8.3 mg/dL (8.4-10.2) L 03/15/18 05:20 Total Bilirubin 0.7 mg/dl (0.2-1.3) 03/15/18 05:20 AST 19 U/L (14-36) 03/15/18 05:20 ALT 19 U/L (9-52) 03/15/18 05:20 Alkaline Phosphatase 52 U/L (38-126) 03/15/18 05:20 Total Protein 6.3 G/DL (6.3-8.2) 03/15/18 05:20 Albumin 3.2 g/dL (3.5-5.0) L D 03/15/18 05:20 Globulin 3.1 gm/dL (2.2-3.9) 03/15/18 05:20 Albumin/Globulin Ratio 1.0 (1.0-2.1) 03/15/18 05:20 Lipase 61 U/L (23-300) 03/13/18 21:38 Urine Color Torie (YELLOW) 03/13/18 21:58 Urine Clarity Cloudy (Clear) 03/13/18 21:58 Urine pH 6.0 (5.0-8.0) 03/13/18 21:58 Ur Specific [place] 1.025 (1.003-1.030) 03/13/18 21:58 Urine Protein 100 mg/dL (NEGATIVE) 03/13/18 21:58 Urine Glucose (UA) Neg mg/dL (Normal) 03/13/18 21:58 Urine Ketones Trace mg/dL (NEGATIVE) 03/13/18 21:58 Urine Blood Small (NEGATIVE) 03/13/18 21:58 Urine Nitrate Negative (NEGATIVE) 03/13/18 21:58 Urine Bilirubin Negative (NEGATIVE) 03/13/18 21:58 Urine Urobilinogen 0.2-1.0 mg/dL (0.2-1.0) 03/13/18 21:58 Ur Leukocyte Esterase Trace Stephan/uL (Negative) 03/13/18 21:58 Urine RBC (Auto) 33 /hpf (0-3) H 03/13/18 21:58 Urine Microscopic WBC 6 /hpf (0-5) H 03/13/18 21:58 Ur Squamous Epith Cells 4 /hpf (0-5) 03/13/18 21:58 Urine Bacteria Rare (<OCC) 03/13/18 21:58 Hyaline Casts 3-5 /hpf (0-2) H 03/13/18 21:58 Attending/Attestation - Attestation I have personally seen and examined this patient.: Yes I have fully participated in the care of the patient.: Yes I have reviewed all pertinent clinical information, including history, physical exam and plan: Yes
[2018-03-15] MEDS ORDERED: Enoxaparin 40 mg Syringe SC SCH (22:00)
== END 2018-03-15 12:00 | disposition home or self-care (01) ==
LOC: H.ER 19:41 → H.ERHOLD 03-14 05:25 → INTOOBSV 03-14 05:25 → H.MEDSURG1 03-14 06:59
PROVIDERS: ADMIT Internal Medicine; ATTEND Internal Medicine
DX: K35.80 Unspecified acute appendicitis (principal); N18.9 Chronic kidney disease, unspecified; N20.0 Calculus of kidney; Z80.9 Family history of malignant neoplasm, unspecified; Z82.49 Family history of ischemic heart disease and other diseases of the circulatory system; Z87.442 Personal history of urinary calculi; G43.909 Migraine, unspecified, not intractable, without status migrainosus; H81.10 Benign paroxysmal vertigo, unspecified ear; Z86.2 Personal history of diseases of the blood and blood-forming organs and certain disorders involving the immune mechanism; E11.22 Type 2 diabetes mellitus with diabetic chronic kidney disease; I12.9 Hypertensive chronic kidney disease with stage 1 through stage 4 chronic kidney disease, or unspecified chronic kidney disease; Z23 Encounter for immunization
CPT/HCPCS: 36415; 44970; 71045; 74176; 76705; 80053; 81003; 81025; 83690; 85025; 85610; 85730; 87040; 87086; 88304; 90471; 93005; 99283; G0378; J0330; J0744; J1170; J2250; J2543; J2704; J2710; J2765; J3010; J7030; J7120; Q2035